=== PATIENT | female | born 1995 | race Caucasian/White ===

== ENCOUNTER 2018-02-02 18:26 | Emergency (ER) | payer SELFPAY ==
--- NOTE | 2018-02-02 19:56 | ER Document Report ---
ED ENT - General Chief Complaint: Ear Pain Stated Complaint: HEARING LOSS, SORE THROAT, COUGH Time Seen by Provider: 02/02/18 19:25 Mode of Arrival: Ambulatory Information source: Patient - HPI Patient complains to provider of: Ear problem Onset: Last week Notes: Patient is here with complaints of right ear pain. She states that the pain has been fairly constant for the last week. She also complains that she has had loss of hearing in the right ear. She has had upper respiratory symptoms just prior to this starting. She has had no fevers. She states the pain in her ear is worse when she swallows. She occasionally has a sore throat. She denies fever. She denies nausea, vomiting, diarrhea. No dizziness. No vertigo. No numbness, tingling, weakness. No blurred or loss vision. No severe headache. She denies any other complaints at this time. - Related Data Allergies/Adverse Reactions: amoxicillin Allergy (Verified 02/02/18 18:29) Past Medical History - Social History Smoking Status: Current Every Day Smoker Chew tobacco use (# tins/day): No Frequency of alcohol use: Social Drug Abuse: None Family History: Reviewed & Not Pertinent Patient has suicidal ideation: No Patient has homicidal ideation: No Renal/ Medical History: Denies: Hx Peritoneal Dialysis Review of Systems - Review of Systems -: Yes All other systems reviewed and negative Physical Exam - Vital signs Vitals: Temp Pulse Resp BP Pulse Ox 98.5 F 94 20 121/68 97 02/02/18 18:31 02/02/18 18:31 02/02/18 18:31 02/02/18 18:31 02/02/18 18:31 - Notes Notes: GENERAL: alert, cooperative, nontoxic, no distress. HEAD: normocephalic, atraumatic EYES: conjunctiva pink without discharge, no external redness or swelling. EARS: no external swelling, no external redness, no mastoid redness, swelling, tenderness. Ear canals are clear without swelling or drainage. TMs pearly blunt , no redness, no bulging, normal landmarks, no perforation. No tenderness with palpation of the tragus or movement of the auricle. Right TM is noted to have effusion and slight retraction. Trejo test shows increased hearing on the right compared to the left consistent with a conductive hearing loss. NOSE: atraumatic, no external swelling. clear rhinorrhea noted. MOUTH/THROAT: mucous membranes moist and pink, posterior pharynx without erythema, swelling, exudate. No trismus or drooling. NECK: soft, supple, full range of motion, no meningismus. CHEST: no distress, lungs clear and equal throughout. No wheezing, rales, rhonchi. CARDIAC: regular rate and rhythm, no murmur, normal capillary refill, normal pulses. No peripheral edema noted. BACK: full range of motion, no CVA tenderness. EXTREMITIES: full range of motion of all extremities. No redness, no swelling. NEURO: alert and oriented A&O3, no focal deficits, full range of motion of all extremities. PYSCH: appropriate mood, affect. Patient is cooperative. SKIN: pink, warm, dry, no rash. Course - Re-evaluation Re-evalutation: 02/02/18 19:50 Patient is nontoxic appearing with stable vitals. She is here with complaints of right ear pain and hearing loss. Patient states that she has had cold symptoms just prior to this starting. She denies fevers. On exam her right TM has effusion and slight retraction. There is no signs of infection. Throat exam is normal. Trejo test shows increased hearing on the right compared to the left consistent with a conductive hearing loss. Patient likely has eustachian tube dysfunction. At this point patient has no other neurological signs or symptoms or concerns for a neurological source of her hearing loss. She is having no vertiginous symptoms. She will be discharged home with Flonase , Claritin-D, naproxen. She will be referred to ENT if her symptoms do not improve in the next week, sooner for worsening pain, fever, redness, drainage, any further concerns. The patient is noted to have elevated blood pressure during today's emergency department visit. The patient was informed of this finding. The patient was instructed that this may be related to pre-hypertension and requires further evaluation with a primary care provider. The patient has no hypertensive symptoms at this time. The patient's emergency department workup and current diagnosis were explained to the patient and or family. Follow-up instructions were provided. Medications if prescribed were discussed. Instructions for when to return to the emergency department including specific worrisome symptoms were discussed with the patient and/or family. - Vital Signs Vital signs: Temp Pulse Resp BP Pulse Ox 98.5 F 94 20 121/68 97 02/02/18 18:31 02/02/18 18:31 02/02/18 18:31 02/02/18 18:31 02/02/18 18:31 Discharge - Discharge Clinical Impression: Eustachian tube dysfunction Qualifiers: Laterality: right Qualified Code(s): H69.81 - Other specified disorders of Eustachian tube, right ear Condition: Stable Disposition: HOME, SELF-CARE Instructions: Ear Barotrauma ([facility]) Additional Instructions: Take medications as prescribed. Follow-up with with ENT if not better in 1 week , sooner for increasing pain, fever, numbness, tingling, weakness, persistent vomiting, passing out, drainage, or for any further concerns. The patient is noted to have elevated blood pressure during today's emergency department visit. The patient was informed of this finding. The patient was instructed that this may be related to pre-hypertension and requires further evaluation with a primary care provider. The patient has no hypertensive symptoms at this time. The patient's emergency department workup and current diagnosis were explained to the patient and or family. Follow-up instructions were provided. Medications if prescribed were discussed. Instructions for when to return to the emergency department including specific worrisome symptoms were discussed with the patient and/or family. Prescriptions: Fluticasone Propionate [Flonase Nasal [place] 50 Mcg/[place] 16 gm] 1 spray NASL Q12 #1 inhaler Loratadine/Pseudoephedrine Sul [Claritin-D 12 Hour Tablet] 1 each PO BID PRN # 14 tab.sr.12h PRN Reason: Naproxen [Naprosyn] 500 mg PO BID #20 tablet Forms: Elevated Blood Pressure, Smoking Cessation Education Referrals: ANGELIA WILCOX MD [ACTIVE STAFF] - Follow up as needed CATHIE PEDRAZA MD [DRIVER LICENSE REVIEWING OFFICER] - Follow up as needed PRO TUTTLE MD [DRIVER LICENSE REVIEWING OFFICER] - Follow up as needed RIMA OCONNOR DO [DRIVER LICENSE REVIEWING OFFICER] - Follow up as needed KEN CASSIDY MD [DRIVER LICENSE REVIEWING OFFICER] - Follow up as needed NICOLE COOK MD [DRIVER LICENSE REVIEWING OFFICER] - Follow up as needed [facility] [Provider Group] - Follow up as needed
[2018-02-02 20:12] VITALS: BP 113/67
== END 2018-02-02 20:12 | disposition home or self-care (01) ==
LOC: ER 18:26
DX: H69.91 Unspecified Eustachian tube disorder, right ear (principal); H91.91 Unspecified hearing loss, right ear; H92.01 Otalgia, right ear; J02.9 Acute pharyngitis, unspecified; Z88.0 Allergy status to penicillin; F17.200 Nicotine dependence, unspecified, uncomplicated; R03.0 Elevated blood-pressure reading, without diagnosis of hypertension
CPT/HCPCS: 99282